=== PATIENT | male | born 1950 | race Asian ===

== ENCOUNTER 2023-04-23 09:53 | Outpatient (CLI) | payer OTHER ==
[2023-04-23] MEDS ORDERED: CYSTOGRAFIN 300 ML INFUS..BTL UR ONE (10:14)
== END 2023-04-23 17:16 | disposition home or self-care (01) ==
LOC: SRD 09:53
PROVIDERS: ATTEND Urology Pediatric Urology
DX: C61 Malignant neoplasm of prostate (principal)
CPT/HCPCS: 74430; Q9958